=== PATIENT | male | born 1975 ===

== ENCOUNTER 2018-12-11 10:30 | Outpatient (CLI) | payer OTHER ==
[~2018-12-11] VITALS: Ht 152.4 cm; Wt 80.7 kg
== END 2018-12-11 12:54 | disposition home or self-care (01) ==
LOC: OFIC 805 10:30
DX: H80.81 Other otosclerosis, right ear (principal); H60.8X3 Other otitis externa, bilateral; H90.A31 Mixed conductive and sensorineural hearing loss, unilateral, right ear with restricted hearing on the contralateral side